=== PATIENT | female | born 1990 | race Caucasian/White ===

== ENCOUNTER 2016-05-08 09:36 | Emergency (ER) | payer OTHER ==
[2016-05-08 10:40] LABS: HEMOGLOBIN 13.4 gm/dl (12.3-15.3); RED BLOOD COUNT 4.29 M/UL (4.00-5.10); WHITE BLOOD COUNT 6.1 K/UL (4.5-11.0)
[2016-05-08 10:59] LABS: BUN/CREATININE RATIO 36 (0-10)
== END 2016-05-08 14:00 | disposition home or self-care (01) ==
LOC: ER1 09:36
PROVIDERS: Physician Assistant
DX: R11.2 Nausea with vomiting, unspecified (principal); R19.7 Diarrhea, unspecified; E87.6 Hypokalemia; F17.200 Nicotine dependence, unspecified, uncomplicated; Z90.49 Acquired absence of other specified parts of digestive tract; Z79.899 Other long term (current) drug therapy
CPT/HCPCS: 36415; 80053; 81001; 83690; 84703; 85025; 87045; 87046; 89055; 96361; 96374; 96375; 99284; J2405; J7030